=== PATIENT | female | born 1980 | race Caucasian/White ===

== ENCOUNTER 2019-01-28 11:43 | Emergency (ER) | payer SELFPAY ==
[~2019-01-28 11:43] MED LIST: ISOVUE-370 76%-LOCM 1 ML ONE
[2019-01-28] MEDS ORDERED: Ketorolac Tromethamine 30 MG/ML VIAL ONE (13:00)
[2019-01-28 13:46] LABS: BHCG - Serum Negative (NEGATIVE); Pregs Control Background? CLEAR/WHITE (CLR/WHITE); Pregs Control Bar Appear? YES (CONTROL BAR)
[2019-01-28 13:54] LABS: White Blood Cell (WBC) Count 8.6 thou/uL (4.8-10.8)
[2019-01-28 13:55] LABS: %Basophils 0.4 % (0.0-1.0); %Eosinophils 1.3 % (0.0-10.0); %Lymphocytes 26.2 % (21.0-51.0); %Neutrophils 69.2 % (42.0-75.0); Mean Corpuscular HGB CONC 34.7 g/dL (32.0-36.0); Mean Corpuscular Hemoglobin 26.7 pg (27.0-31.0); Mean Corpuscular Volume 76.8 fL (78.0-98.0); Mean Platelet Volume 9.7 fL (7.4-10.4); Platelet Count 235 thou/uL (130-400); RBC Distribution Width 15.2 % (11.5-14.5); Red Blood Cell (RBC) Count 4.88 mill/uL (4.20-5.40)
[2019-01-28 13:56] LABS: #Eosinphils 0.1 thou/uL (0.0-0.7); #Lymphocytes 2.3 thou/uL (1.20-3.40); #Monocytes 0.3 thou/uL (0.11-0.59)
[2019-01-28 14:12] LABS: Bilirubin Negative (Negative); Blood, Urine Negative (Negative); Clarity CLEAR (Clear); Glucose, Urine (Dipstick) >=1000 mg/dL (Negative); Leukocyte Negative (Negative); Nitrite Negative (Negative); Protein, Urine (Dipstick) 100 mg/dL (Neg-Trace); Specific Gravity, Urine 1.041 (1.002-1.036); Urobilinogen 0.2 mg/dL (0.2-1.0)
[2019-01-28 14:14] LABS: Carbon Dioxide 19 mmol/L (22-29); Chloride 101 mmol/L (98-107); Potassium 4.4 mmol/L (3.5-5.1); Sodium 133 mmol/L (136-145)
[2019-01-28 14:15] LABS: Bacteria/HPF None Seen HPF (None Seen); Hyaline Casts/LPF 0-3 HYALINE CAST LPF (0-3 Hyaline); Pathc Cast-AUWi Flag 0.14 (0-2.49); Squamous Epithelial 0-3 HPF (0-3); WBC/HPF 0-3 HPF (0-3)
[2019-01-28 14:15] LABS: Anion Gap 17 mmol/L (10-20); Glucose 290 mg/dL (70-105); Protein, Total 7.3 g/dL (6.0-8.3)
[2019-01-28 14:16] LABS: Albumin 4.1 g/dL (3.5-5.0); Calcium 9.4 mg/dL (7.8-10.44); Globulin 3.2 g/dL (2.4-3.5)
[2019-01-28 14:17] LABS: Alkaline Phosphatase 124 U/L (40-150); BUN (Urea Nitrogen) 10 mg/dL (7.0-18.7); Bilirubin, Total 0.4 mg/dL (0.2-1.2); Calc. Creatinine Clearance 0 mL/min (70-130); Estimated GFR-MDRD Greater than 90
[2019-01-28 14:18] LABS: ALT (SGPT) 20 U/L (8-55); AST (SGOT) 14 U/L (5-34)
[2019-01-28 14:27] LABS: RBC/HPF None Seen HPF (0-3)
--- NOTE | 2019-01-28 16:08 | CT ---
CONTRAST ENHANCED CTA CHEST: HISTORY: Cough. Shortness of breath. Pain. TECHNIQUE: A contrast enhanced CTA chest is performed, and 2D and 3D reconstructed images are performed on an in dependent 3D work station. FINDINGS: CTA chest demonstrates no definite evidence of lung parenchymal masses. No evidence of mediastinal lymphadenopathy is seen. No significant evidence of filling defect seen in the pulmonary arteries, to suggest pulmonary emboli . Hepatic steatosis is present. There is a small area of soft tissue density in the left adrenal gland, measuring approximately 11 mm . Correlate with follow-up imaging, if indicated. IMPRESSION: No evidence of pulmonary emboli. POS: [facility]
--- NOTE | 2019-01-29 10:53 | RAD ---
CHEST 2 VIEWS: Date: 01/28/19 HISTORY: Chest pain. COMPARISON: None. FINDINGS: Lungs are clear. No pneumothorax or effusion. Cardiac silhouette and mediastinal contour within edd l limits. IMPRESSION: No acute intrathoracic abnormality. POS: [facility]
== END 2019-01-28 16:24 | disposition home or self-care (01) ==
LOC: ERS 11:43
DX: M54.6 Pain in thoracic spine (principal); E11.9 Type 2 diabetes mellitus without complications; F17.210 Nicotine dependence, cigarettes, uncomplicated
CPT/HCPCS: 36415; 71046; 71275; 80053; 81003; 81015; 84484; 84703; 85025; 93005; 96360; 96372; J1885; Q9966

== ENCOUNTER 2019-01-29 17:11 | Emergency (ER) | payer SELFPAY ==
[2019-01-29] MEDS ORDERED: Ondansetron PF 4 MG/2 ML Vial ONE (18:18)
[2019-01-29] MEDS ORDERED: Ketorolac Tromethamine 30 MG/ML VIAL ONE (18:21)
--- NOTE | 2019-01-29 18:32 | RAD ---
THORACIC SPINE THREE VIEWS: History: Back pain. Comparison: None. FINDINGS: No fracture. No malalignment. No listhesis. Paraspinal soft tissues are unremarkable. IMPRESSION: No acute abnormality. POS: [facility]
[2019-01-29] MEDS ORDERED: Morphine 4 MG/ML VIAL ONE (19:54)
--- NOTE | 2019-01-29 20:40 | ULT ---
RIGHT UPPER QUADRANT ULTRASOUND: History: Right upper quadrant pain, back pain. Comparison: None. FINDINGS: The visualized portion of the pancreas is unremarkable. There is diffuse increased hepatic echotextur e. No mass. The gallbladder wall thickness is normal. The common bile duct measures 5 mm, normal. The main portal vein is patent with antegrade flow. The liver measures 18.4 cm in length. Right kidney measures 11.9 x 5.4 x 6.7 cm without mass, hydrone phrosis or abnormal calcifications. IMPRESSION: 1. Diffuse increased hepatic echotexture suggesting steatosis. 2. No acute gallbladder pathology. POS: [facility]
== END 2019-01-29 21:00 | disposition home or self-care (01) ==
LOC: ERS 17:11
DX: M54.6 Pain in thoracic spine (principal); E11.9 Type 2 diabetes mellitus without complications; E78.1 Pure hyperglyceridemia; G43.909 Migraine, unspecified, not intractable, without status migrainosus; F17.210 Nicotine dependence, cigarettes, uncomplicated
CPT/HCPCS: 72072; 76705; 83690; 84484; 93005; 96374; 96375; J1885; J2270; J2405

== ENCOUNTER 2020-01-25 08:22 | Emergency (ER) | payer OTHER ==
[2020-01-25] MEDS ORDERED: Ketorolac Tromethamine 30 MG/ML VIAL ONE (08:55)
[2020-01-25 09:33] LABS: #Basophils 0.1 thou/uL (0.0-0.2); #Eosinphils 0.1 thou/uL (0.0-0.7); #Lymphocytes 2.2 thou/uL (1.20-3.40); #Monocytes 0.4 thou/uL (0.11-0.59); #Neutrophils 8.9 thou/uL (1.40-6.50); %Basophils 0.6 % (0.0-1.0); %Eosinophils 0.8 % (0.0-10.0); %Lymphocytes 19.2 % (21.0-51.0); %Monocytes 3.1 % (0.0-10.0); %Neutrophils 76.5 % (42.0-75.0); Hemoglobin 13.9 g/dL (12.0-16.0); Mean Corpuscular HGB CONC 35.5 g/dL (32.0-36.0); Mean Corpuscular Hemoglobin 29.3 pg (27.0-31.0); Mean Corpuscular Volume 82.7 fL (78.0-98.0); Mean Platelet Volume 8.4 fL (7.4-10.4); Platelet Count 244 thou/uL (130-400); RBC Distribution Width 12.7 % (11.5-14.5); Red Blood Cell (RBC) Count 4.74 mill/uL (4.20-5.40); White Blood Cell (WBC) Count 11.7 thou/uL (4.8-10.8)
--- NOTE | 2020-01-25 09:54 | RAD ---
RIGHT HAND 3 VIEWS: Date: 01/25/2020 HISTORY: Stiff hand. Sharp pain in the third and fourth fingers of right hand. FINDINGS/IMPRESSION: No bony abnormalities identified. POS: [facility]
[2020-01-25 09:56] LABS: ALT (SGPT) 35 U/L (8-55); AST (SGOT) 19 U/L (5-34); Albumin 4.3 g/dL (3.5-5.0); Alkaline Phosphatase 86 U/L (40-110); Anion Gap 17 mmol/L (10-20); BUN (Urea Nitrogen) 11 mg/dL (7.0-18.7); Bilirubin, Total 0.5 mg/dL (0.2-1.2); Calc. Creatinine Clearance 0 mL/min (70-130); Calcium 9.4 mg/dL (7.8-10.44); Carbon Dioxide 22 mmol/L (22-29); Chloride 100 mmol/L (98-107); Estimated GFR-MDRD 90; Globulin 2.9 g/dL (2.4-3.5); Glucose 300 mg/dL (70-105); Potassium 4.2 mmol/L (3.5-5.1); Protein, Total 7.2 g/dL (6.0-8.3); Sodium 135 mmol/L (136-145)
== END 2020-01-25 10:41 | disposition home or self-care (01) ==
LOC: ERS 08:22
DX: G56.01 Carpal tunnel syndrome, right upper limb (principal); E78.2 Mixed hyperlipidemia; E11.9 Type 2 diabetes mellitus without complications; G43.909 Migraine, unspecified, not intractable, without status migrainosus; F32.9 Major depressive disorder, single episode, unspecified; F17.210 Nicotine dependence, cigarettes, uncomplicated
CPT/HCPCS: 80053; 85025; 85652; 86140; 96361; 96374; J1885

== ENCOUNTER 2022-07-29 12:37 | Outpatient (CLI) | payer BC | END 2022-07-29 12:38 | disposition home or self-care (01) | LOC: SCSRAD 12:37 | PROVIDERS: ATTEND Family Medicine | DX: U09.9 Post COVID-19 condition, unspecified (principal) | CPT/HCPCS: 71046 ==

== ENCOUNTER 2023-05-10 17:30 | Outpatient (CLI) | payer BC | END 2023-05-10 17:31 | disposition home or self-care (01) | LOC: SLEEPLAB 17:30 | PROVIDERS: ATTEND Family Medicine | DX: G47.33 Obstructive sleep apnea (adult) (pediatric) (principal); R06.83 Snoring; G47.00 Insomnia, unspecified; I10 Essential (primary) hypertension; E66.9 Obesity, unspecified; R53.83 Other fatigue | CPT/HCPCS: 95800 ==